=== PATIENT | female | born 1990 | race Two or more races ===

== ENCOUNTER 2023-06-04 09:41 | Observation (INO) | payer MEDICAID, OTHER ==
[~2023-06-04] VITALS: Ht 406.4 cm; Wt 86.2 kg
== END 2023-06-04 11:15 | disposition home or self-care (01) ==
LOC: UNDOADMOB 09:41 → LDRP 09:41 → UNDODISOB 11:15
PROVIDERS: ADMIT Obstetrics & Gynecology; ATTEND Obstetrics & Gynecology
DX: O48.0 Post-term pregnancy (principal); O26.892 Other specified pregnancy related conditions, second trimester; R25.2 Cramp and spasm; Z3A.40 40 weeks gestation of pregnancy
CPT/HCPCS: 59025; 76818; 81002; 94760; G0378

== ENCOUNTER 2023-06-06 07:54 | Observation (INO) | payer MEDICAID | END 2023-06-06 09:38 | disposition home or self-care (01) | LOC: UNDOADMOB 07:54 → LDRP 07:54 → UNDODISOB 09:38 | PROVIDERS: ADMIT Obstetrics & Gynecology; ATTEND Obstetrics & Gynecology | DX: O62.9 Abnormality of forces of labor, unspecified (principal); O48.0 Post-term pregnancy; Z3A.40 40 weeks gestation of pregnancy | CPT/HCPCS: 59025; 76818; 81002; 94760; G0378 ==

== ENCOUNTER 2023-06-08 09:06 | Observation (INO) | payer MEDICAID | END 2023-06-08 10:20 | disposition home or self-care (01) | LOC: LDRP 09:06 | PROVIDERS: ADMIT Obstetrics & Gynecology; ATTEND Obstetrics & Gynecology | DX: O48.0 Post-term pregnancy (principal); Z3A.40 40 weeks gestation of pregnancy | CPT/HCPCS: 59025; 76818; 81002; G0378 ==

== ENCOUNTER 2023-06-10 07:05 | Inpatient (IN) | payer MEDICAID ==
[~2023-06-10] VITALS: Ht 165.1 cm; Wt 86.2 kg
[2023-06-10] MEDS ORDERED: PHISODERM TOP SOLN 240ML BTL TOP PRN (07:30)
[2023-06-10] MEDS ORDERED: LIDOCAINE 2%HCL (LOCAL ANESTH.) INJ 20ML MDV IJ PRN (07:30)
[2023-06-10] MEDS ORDERED: DERMOPLAST 60ML BOTTLE TOP PRN (07:30)
[2023-06-10] MEDS ORDERED: PROMETHAZINE HCL 25 MG/ML 1ML IV PRN (07:30)
[2023-06-10] MEDS ORDERED: miSOPROStol 50 MCG per PRE-CUT 1/2 TAB PO PRN (07:30)
[2023-06-10] MEDS ORDERED: WITCH HAZEL-GLYCERIN PAD TOP PRN (07:30)
[2023-06-10 08:41] LABS: Basophils # (auto) 0 10 ^3/uL (0-0.2); Basophils % (auto) 0.1 % (0.0-2.0); Eosinophils # (auto) 0 10 ^3/uL (0-0.8); Eosinophils % (auto) 0.1 % (0.0-7.0); Hemoglobin 13.8 g/dL (12.2-16.2); Lymphocytes # (auto) 1.6 10 ^3/uL (0.4-5.4); Lymphocytes % (auto) 14.9 % (10.0-50.0); Mean Corpuscular Hgb Conc. 33.7 g/dL (32.0-36.0); Mean Corpuscular Volume 89.2 fL (80.0-100.0); Monocytes # (auto) 0.7 10 ^3/uL (0-1.3); Monocytes % (auto) 5.9 % (0.0-12.0); Neutrophils # (auto) 8.7 10 ^3/uL (1.6-8.6); Red Cell Distribution Width 15.4 % (11.8-14.3); White Blood Cell 11.1 10^3/uL (4.4-10.8)
[2023-06-10 08:49] LABS: Urine Bacteria FEW /hpf (None Seen); Urine Blood Negative /uL (Negative); Urine Clarity Clear (Clear); Urine Color Yellow (Yellow); Urine Protein, UAD Negative (Negative); Urine Specific Gravity 1.007 (1.001-1.035); Urine Urobilinogen Normal (Negative); Urine WBC 4 /hpf (0 - 5)
[2023-06-10] MEDS: LACTATED RINGER'S 1,000 ML IV SCH ×2 (08:53→11:34)
[2023-06-10 09:01] LABS: INR 0.92 (0.9-1.15); Partial Thromboplastin Time 26.8 SEC (24.5-34.5); Prothrombin Time 9.7 sec (9.3-11.8)
[2023-06-10 09:03] LABS: Alanine Aminotransferase 11 U/L (7-40); Albumin 4.4 g/dL (3.2-4.8); Alkaline Phosphatase 194 U/L (46-116); Anion Gap 10 (5-15); Aspartate Aminotransferase 17 U/L (13-40); Carbon Dioxide 22 mmol/L (20-30); Chloride 107 mmol/L (98-107); Glucose 98 mg/dL (74-106); Potassium 3.4 mmol/L (3.5-5.1); Sodium 139 mmol/L (136-145)
[2023-06-10 09:04] LABS: Bilirubin, Total 0.4 mg/dL (0.2-1.0); Total Protein 7.1 g/dL (5.7-8.2)
[2023-06-10 09:06] LABS: BUN/Creatinine Ratio 9.4 (10.0-20.0); Blood Urea Nitrogen < 5 mg/dL (9-23)
[2023-06-10 09:10] LABS: Amphetamine Screen, Urine Neg (NEGATIVE)
[2023-06-10 09:12] LABS: Barbiturate Scree,Urine Neg (NEGATIVE)
[2023-06-10 09:13] LABS: Benzodiazephine Screen, Urine Neg (NEGATIVE); Cannabinoid Screen, Urine Neg (NEGATIVE); Cocaine Screen, Urine Neg (NEGATIVE); Opiate Scree,Urine Neg (NEGATIVE); Phencyclidine Screen, Urine Neg (NEGATIVE)
[2023-06-10] MEDS ORDERED: fentaNYL CITRATE 100 MCG/2 ML VL IV ONE ×2 (10:00→19:00)
[2023-06-10] MEDS ORDERED: POTASSIUM CHL 20 Meq TABLET PO ONE (12:15)
[2023-06-10] MEDS ORDERED: LACT. RINGERS/OXYTOCIN 20UNITS 1,000 ML IV SCH (12:45)
[2023-06-10] MEDS ORDERED: LACT. RINGERS/OXYTOCIN 20UNITS 500 ML IV ONE ×4 (12:45→21:00)
[2023-06-10] MEDS ORDERED: TERBUTALINE SULFATE 1 MG/ML 1ML VIAL SC PRN (12:45)
[2023-06-10] MEDS ORDERED: ePHEDrine SULFATE 50 MG/ML AMP IV ONE (19:00)
[2023-06-10] MEDS ORDERED: NALOXONE HCL 0.4 MG/ML VIAL IV ONE (19:00)
[2023-06-10] MEDS ORDERED: LIDOCAINE HCL 2 %PF INJ 10ML AMP IJ ONE (19:00)
[2023-06-10] MEDS ORDERED: ONDANSETRON ODT 4 MG TAB PO PRN (20:30)
[2023-06-10] MEDS ORDERED: ACETAMINOPHEN 325 MG TAB PO PRN (20:30)
[2023-06-10] MEDS ORDERED: DOCUSATE SOD 100 MG CAP PO SCH (22:00)
[2023-06-10 22:30] VITALS: PULSE 111; RESP 16
[2023-06-10] MEDS ORDERED: BUPIVACAINE 0.5% P/F INJ 10 ML VIAL ONE (22:38)
[2023-06-10] MEDS ORDERED: TETRACAINE 1% INJ 2 ML VIAL IJ ONE (22:38)
[2023-06-10] MEDS ORDERED: MORPHINE SULF PF 5 MG/10 ML VIAL ONE (22:40)
[2023-06-10] MEDS ORDERED: fentaNYL CITRATE 100 MCG/2 ML VL ONE (22:40)
[2023-06-10] MEDS ORDERED: ePHEDrine SULFATE 50 MG/ML AMP ONE (22:41)
[2023-06-10] MEDS ORDERED: ONDANSETRON HCL 4 MG/2 ML VIAL ONE (22:41)
[2023-06-10] MEDS ORDERED: oxyTOCIN 10 UNIT/ML 10ML VIAL ONE (22:41)
[2023-06-10] MEDS ORDERED: GLYCOPYRROLATE 0.2 MG/ML 1ML VIAL ONE (22:41)
[2023-06-10] MEDS ORDERED: ceFAZolin 1GM VL ONE (23:13)
[2023-06-10] MEDS ORDERED: MEPERIDINE HCL (25 MG/ML) 1ML VIAL ONE (23:20)
[2023-06-10] MEDS ORDERED: MIDAZOLAM HCL 2MG/2ML 2ml VIAL (1mg/ml) ONE (23:24)
[2023-06-10 23:48] VITALS: PULSE 115; RESP 19; O2SAT 100
[2023-06-11] VITALS (26 sets, daily range): BP systolic 94–122; BP diastolic 53–74; PULSE 62–111; RESP 16–17; TEMP 97.7–98.1; O2SAT 94–100
[2023-06-11] MEDS ORDERED: FAMOTIDINE (10MG/ML) 2ML VL IV PRN
[2023-06-11] MEDS ORDERED: DexAMETHasone SOD PHOS 10MG/1ML VIAL INJ IV PRN
[2023-06-11] MEDS ORDERED: ONDANSETRON HCL 4 MG/2 ML VIAL IV PRN
[2023-06-11] MEDS ORDERED: IBUPROFEN 800 MG TAB PO SCH
[2023-06-11] MEDS ORDERED: diphenhdrAMINE HCL 50 MG/1 ML VL IV PRN
[2023-06-11] MEDS ORDERED: KETOROLAC TROMETH 30 MG/ML 1ML VIAL IV PRN
[2023-06-11 00:26] LABS: Basophils # (auto) 0 10 ^3/uL (0-0.2); Basophils % (auto) 0.2 % (0.0-2.0); Eosinophils # (auto) 0 10 ^3/uL (0-0.8); Hematocrit 38.4 % (36.0-46.0); Hemoglobin 12.7 g/dL (12.2-16.2); Lymphocytes # (auto) 0.8 10 ^3/uL (0.4-5.4); Lymphocytes % (auto) 4.4 % (10.0-50.0); Mean Corpuscular Hemoglobin 29.9 pg (28.0-32.0); Mean Corpuscular Volume 90.6 fL (80.0-100.0); Monocytes # (auto) 0.8 10 ^3/uL (0-1.3); Neutrophils # (auto) 17.6 10 ^3/uL (1.6-8.6); Neutrophils % (auto) 91.4 % (37.0-80.0); Red Blood Cells 4.24 10^6/uL (4.0-5.20); Red Cell Distribution Width 15.9 % (11.8-14.3); White Blood Cell 19.2 10^3/uL (4.4-10.8)
[2023-06-11 06:40] LABS: Basophils # (auto) 0 10 ^3/uL (0-0.2); Basophils % (auto) 0.1 % (0.0-2.0); Eosinophils # (auto) 0 10 ^3/uL (0-0.8); Hematocrit 32.4 % (36.0-46.0); Hemoglobin 10.8 g/dL (12.2-16.2); Lymphocytes # (auto) 1.2 10 ^3/uL (0.4-5.4); Lymphocytes % (auto) 6.9 % (10.0-50.0); Mean Corpuscular Hemoglobin 29.9 pg (28.0-32.0); Mean Corpuscular Hgb Conc. 33.4 g/dL (32.0-36.0); Mean Corpuscular Volume 89.7 fL (80.0-100.0); Monocytes # (auto) 0.8 10 ^3/uL (0-1.3); Monocytes % (auto) 4.8 % (0.0-12.0); Neutrophils # (auto) 14.9 10 ^3/uL (1.6-8.6); Neutrophils % (auto) 88.2 % (37.0-80.0); Red Blood Cells 3.61 10^6/uL (4.0-5.20); Red Cell Distribution Width 15.6 % (11.8-14.3); White Blood Cell 16.9 10^3/uL (4.4-10.8)
[2023-06-11 06:50] LABS: Anion Gap 8 (5-15); Carbon Dioxide 23 mmol/L (20-30); Chloride 108 mmol/L (98-107); Potassium 3.6 mmol/L (3.5-5.1); Sodium 139 mmol/L (136-145)
[2023-06-11 06:52] LABS: Calcium 8.4 mg/dL (8.7-10.4)
[2023-06-11 06:56] LABS: Glucose 123 mg/dL (74-106)
[2023-06-11 06:58] LABS: BUN/Creatinine Ratio 9.8 (10.0-20.0); Blood Urea Nitrogen < 5 mg/dL (9-23)
[2023-06-11] MEDS ORDERED: HYDROcodone-ACET 5/325MG TAB PO PRN (10:15)
[2023-06-11] MEDS ORDERED: BISACODYL 10 MG RECT SUPP PR PRN (10:15)
[2023-06-11] MEDS: ceFAZolin 1GM/50ML 50 ML IV SCH ×2 (14:45→22:34)
[2023-06-11] MEDS: IBUPROFEN 600 MG TAB PO PRN (15:29)
[2023-06-11] MEDS: HYDROcodone-ACET 5/325MG TAB PO PRN (20:52)
[2023-06-11] MEDS: DOCUSATE SOD 100 MG CAP PO SCH (22:34)
[2023-06-12 00:55] LABS: Chlamydia Trachomatis, NAA Negative (Negative); Neisseria gonorrhoeae, NAA Negative (Negative)
[2023-06-12 03:00] VITALS: BP 105/56; PULSE 81; RESP 16; TEMP 97.9; O2SAT 97
[2023-06-12] MEDS: IBUPROFEN 600 MG TAB PO PRN (03:20)
[2023-06-12] MEDS: ceFAZolin 1GM/50ML 50 ML IV SCH (05:49)
[2023-06-12 06:53] LABS: Basophils # (auto) 0 10 ^3/uL (0-0.2); Basophils % (auto) 0.1 % (0.0-2.0); Eosinophils # (auto) 0 10 ^3/uL (0-0.8); Eosinophils % (auto) 0.2 % (0.0-7.0); Hematocrit 27.2 % (36.0-46.0); Hemoglobin 9.1 g/dL (12.2-16.2); Lymphocytes # (auto) 1.5 10 ^3/uL (0.4-5.4); Lymphocytes % (auto) 11.6 % (10.0-50.0); Mean Corpuscular Hemoglobin 30.7 pg (28.0-32.0); Mean Corpuscular Hgb Conc. 33.6 g/dL (32.0-36.0); Mean Corpuscular Volume 91.4 fL (80.0-100.0); Monocytes # (auto) 0.8 10 ^3/uL (0-1.3); Monocytes % (auto) 6.2 % (0.0-12.0); Neutrophils # (auto) 10.8 10 ^3/uL (1.6-8.6); Neutrophils % (auto) 81.9 % (37.0-80.0); Red Blood Cells 2.97 10^6/uL (4.0-5.20); Red Cell Distribution Width 15.9 % (11.8-14.3); White Blood Cell 13.1 10^3/uL (4.4-10.8)
[2023-06-12 06:58] LABS: Alanine Aminotransferase 12 U/L (7-40); Albumin 3.1 g/dL (3.2-4.8); Alkaline Phosphatase 117 U/L (46-116); Anion Gap 7 (5-15); BUN/Creatinine Ratio 16.3 (10.0-20.0); Blood Urea Nitrogen 8 mg/dL (9-23); Calcium 8.1 mg/dL (8.7-10.4); Carbon Dioxide 25 mmol/L (20-30); Chloride 106 mmol/L (98-107); Glucose 86 mg/dL (74-106); Potassium 3.5 mmol/L (3.5-5.1); Sodium 138 mmol/L (136-145)
[2023-06-12 06:59] LABS: Aspartate Aminotransferase 27 U/L (13-40); Bilirubin, Total 0.3 mg/dL (0.2-1.0); Total Protein 5.1 g/dL (5.7-8.2)
[2023-06-12 07:24] VITALS: BP 119/67; PULSE 90; RESP 16; TEMP 98.1; O2SAT 98
[2023-06-12] MEDS ORDERED: MILK OF MAGNESIA 30ML SUSP PO ONE (07:30)
[2023-06-12] MEDS: HYDROcodone-ACET 5/325MG TAB PO PRN (07:42)
[2023-06-12] MEDS ORDERED: DOCUSATE CALCIUM 240 MG CAP PO SCH (10:00)
[2023-06-12] MEDS: DOCUSATE SOD 100 MG CAP PO SCH (10:00)
[2023-06-12 10:55] VITALS: BP 93/77; PULSE 77; RESP 16; TEMP 98.9; O2SAT 98
[2023-06-12] MEDS ORDERED: DOCU-94 PO (12:39)
[2023-06-12] MEDS ORDERED: FERR-7 PO (12:39)
[2023-06-12] MEDS ORDERED: IBU600T PO (14:28)
[2023-06-12 14:45] VITALS: BP 114/62; PULSE 97; RESP 16; TEMP 98.2; O2SAT 98
[2023-06-12] MEDS ORDERED: FERROUS SULFATE 325mg EC TAB PO SCH (18:00)
== END 2023-06-12 15:30 | disposition home or self-care (01) | DRG 542 ==
LOC: LDRP 07:05 → UNDOADMIN 07:05 → LDRP 07:23
PROVIDERS: ADMIT Obstetrics & Gynecology; ATTEND Obstetrics & Gynecology
PROC: 0DQR0ZZ Repair Anal Sphincter, Open Approach (ICD-10-PCS; 2023-06-10)
PROC: 3E0P7VZ Introduction of Hormone into Female Reproductive, Via Natural or Artificial Opening (ICD-10-PCS; 2023-06-10)
PROC: 10907ZC Drainage of Amniotic Fluid, Therapeutic from Products of Conception, Via Natural or Artificial Opening (ICD-10-PCS; 2023-06-10)
PROC: 3E033VJ Introduction of Other Hormone into Peripheral Vein, Percutaneous Approach (ICD-10-PCS; 2023-06-10)
PROC: 0W8NXZZ Division of Female Perineum, External Approach (ICD-10-PCS; 2023-06-10)
PROC: 10E0XZZ Delivery of Products of Conception, External Approach (ICD-10-PCS; principal; 2023-06-10 22:51)
DX: O48.0 Post-term pregnancy (principal); Z37.0 Single live birth; R71.0 Precipitous drop in hematocrit; O70.20 Third degree perineal laceration during delivery, unspecified; Z3A.41 41 weeks gestation of pregnancy; O75.89 Other specified complications of labor and delivery; R32 Unspecified urinary incontinence; O99.02 Anemia complicating childbirth
CPT/HCPCS: 36415; 59025; 59409; 80048; 80053; 80307; 81001; 85025; 85610; 85730; 86592; 86762; 86850; 86900; 86901; 87340; 94760; 96360; 96361; 96365; 96366; G0378; J0690; J2250; J2405; J2590; J3490

== ENCOUNTER 2023-07-10 11:06 | Emergency (ER) | payer MEDICAID ==
[~2023-07-10] VITALS: Ht 165.1 cm; Wt 80.1 kg
[~2023-07-10 11:06] MED LIST: DOCU-94 PO; FERR-7 PO; IBU600T PO
[2023-07-10 12:18] VITALS: BP 116/76; PULSE 80; RESP 16; O2SAT 96
[2023-07-10] MEDS ORDERED: ACET500T58 PO (14:23)
[2023-07-10] MEDS ORDERED: DIC250C PO (14:23)
[2023-07-10] MEDS ORDERED: IBUP-1455 PO (14:23)
== END 2023-07-10 14:26 | disposition home or self-care (01) ==
LOC: ER 11:06
DX: N64.4 Mastodynia (principal); Z79.1 Long term (current) use of non-steroidal anti-inflammatories (NSAID); Z79.899 Other long term (current) drug therapy